=== PATIENT | female | born 1995 | race Caucasian/White ===

== ENCOUNTER 2022-09-08 13:46 | Outpatient (CLI) | payer BC, SELFPAY ==
--- NOTE | 2022-09-08 14:00 | CRLHL7_ITS ---
For Patients: As a result of the Cures Act, medical imaging exams and procedure reports are released immediately into your electronic medical record. You may view this report before your referring provider. If you have questions, please contact your health care provider. INDICATION: First trimester scan, establish dates. COMPARISON: None. TECHNIQUE: Real-time green-scale imaging of the pelvis was performed. FINDINGS: Sonographic imaging demonstrates a single living intrauterine gestation. The embryo demonstrates a regular cardiac rate measuring 161 beats per minute. The embryo`s crown-rump length measurement of 5.0 cm corresponds to a gestational age of 11 weeks 5 days with a sonographic due date of 03/25/2023. There is a normal-appearing yolk sac. There are no gross abnormalities noted within the embryo at this early state of development. The gestational sac has a normal appearance. There is no evidence of a perigestational hemorrhage. The amount of fluid within the sac appears appropriate for gestational age. The cervix is closed. The myometrium appears normal. The ovaries are of normal size. Corpus luteal cyst left ovary. There are no suspicious fluid collections noted in the cul-de-sac. IMPRESSION: Normal first trimester OB ultrasound exam. Gestational age calculated at 11 weeks 5 days with a sonographic due date of 03/25/2023. Dictated by Luigi Anton MD @ 09/08/2022 2:40:09 PM (Electronically Signed)
== END 2022-09-08 13:47 | disposition home or self-care (01) ==
LOC: US 13:49
PROVIDERS: Visit Provider Advanced Practice Midwife
DX: Z34.91 Encounter for supervision of normal pregnancy, unspecified, first trimester (principal); Z3A.11 11 weeks gestation of pregnancy
CPT/HCPCS: 76801; 86592; 86703; 86762; 86787; 86803; 86850; 86900; 86901; 87086; 87340

== ENCOUNTER 2022-09-08 14:18 | Outpatient (CLI) | payer BC, SELFPAY | END 2022-09-08 14:19 | disposition home or self-care (01) | PROVIDERS: Visit Provider Advanced Practice Midwife | DX: Z34.91 Encounter for supervision of normal pregnancy, unspecified, first trimester (principal); Z3A.11 11 weeks gestation of pregnancy | CPT/HCPCS: 86592; 86703; 86762; 86787; 86803; 86850; 86900; 86901; 87086; 87340 ==

== ENCOUNTER 2022-11-10 12:41 | Outpatient (CLI) | payer BC, SELFPAY ==
--- NOTE | 2022-11-10 13:00 | CRLHL7_ITS ---
For Patients: As a result of the Century Cures Act, medical imaging exams and procedure reports are released immediately into your electronic medical record. You may view this report before your referring provider. If you have questions, please contact your health care provider. INDICATION: Evaluate anatomy. COMPARISON: 09/08/2022 TECHNIQUE: Real time green scale imaging of the fetus was performed as well as color Doppler analysis of the umbilical vessels. FINDINGS: Sonographic imaging demonstrates a single living intrauterine gestation. Fetus demonstrates a regular cardiac rate of 149 beats per minute. Fetus has a variable position. The placenta lies posteriorly without evidence of placenta previa. The placental edge is located 8.4 cm from the internal cervical os. Amniotic fluid volume appears normal. Single deepest vertical pocket: 5.1 cm. The cervix is closed and measures 4.5 cm in length. The composite ultrasound gestational age is calculated at 20 weeks 3 days with an estimated sonographic due date of 03/27/2023. The estimated weight is 353 grams which lies at the 30th %. The following biometric measurements were obtained: Biparietal diameter: 4.8 cm/20 weeks 3 days 37th% Head circumference: 17.8 cm/20 weeks 2 days 22nd% Abdominal circumference: 15.5 cm/20 weeks 5 days 43rd% Femur length: 3.2 cm/20 weeks 1 day 22nd% The HC/AC ratio measures: 1.15 range (1.07-1.25) On anatomic survey, there is a normal appearance of the cerebral ventricles, cavum septi pellucidi, cisterna magna and cerebellum. The nose, lips, and facial profile appear normal. The cervical, thoracic and lumbar spine are well visualized and appear normal. There is a normal four-chamber heart view and the left and right ventricular outflow tracts appear normal. The diaphragm and stomach appear normal. The kidneys and bladder also appear normal. There is a normal three-vessel cord and cord insertion site. The four extremities appear normal. IMPRESSION: Normal OB ultrasound exam with concordance of clinical and sonographic dating. No intrinsic abnormalities noted on anatomic survey. Dictated by Luigi Anton MD @ 11/10/2022 1:33:53 PM (Electronically Signed)
== END 2022-11-10 12:42 | disposition home or self-care (01) ==
LOC: US 12:41
PROVIDERS: Visit Provider Advanced Practice Midwife
DX: Z34.92 Encounter for supervision of normal pregnancy, unspecified, second trimester (principal); Z3A.20 20 weeks gestation of pregnancy
CPT/HCPCS: 76805

== ENCOUNTER 2023-01-05 12:45 | Outpatient (CLI) | payer BC, SELFPAY | END 2023-01-05 12:46 | disposition home or self-care (01) | PROVIDERS: Visit Provider Advanced Practice Midwife | DX: Z34.93 Encounter for supervision of normal pregnancy, unspecified, third trimester (principal); O26.899 Other specified pregnancy related conditions, unspecified trimester; Z67.91 Unspecified blood type, Rh negative; Z3A.28 28 weeks gestation of pregnancy | CPT/HCPCS: 85461; 86592; 86850 ==

== ENCOUNTER 2023-03-02 15:35 | Outpatient (CLI) | payer BC, SELFPAY ==
[2023-03-03 14:42] LABS: Strep B DNA Probe Negative (Negative); Strep B Susceptibility Needed? No
== END 2023-03-02 15:36 | disposition home or self-care (01) ==
LOC: NFLDREF 15:35
PROVIDERS: Visit Provider Advanced Practice Midwife
DX: Z34.83 Encounter for supervision of other normal pregnancy, third trimester (principal); Z3A.36 36 weeks gestation of pregnancy
CPT/HCPCS: 87081; 87653

== ENCOUNTER 2023-03-09 15:41 | Outpatient (CLI) | payer BC, SELFPAY ==
--- NOTE | 2023-03-09 16:00 | CRLHL7_ITS ---
For Patients: As a result of the Century Cures Act, medical imaging exams and procedure reports are released immediately into your electronic medical record. You may view this report before your referring provider. If you have questions, please contact your health care provider. INDICATION: Measuring small for dates COMPARISON: 11/10/2022 TECHNIQUE: Real time green scale imaging of the fetus was performed. FINDINGS: Sonographic imaging demonstrates a single living intrauterine gestation. Fetus demonstrates a regular cardiac rate of 130 beats per minute. Fetus has a vertex position. The placenta lies posteriorly. Amniotic fluid volume appears normal and there is a single deepest vertical pocket: 5.7 cm. The estimated weight is 2774gm which lies at the 16th %. On the prior OB ultrasound exam dated 11/10/2022 the estimated weight was at the 30th%. BPD 11th percentile. HC 13th percentile. AC 27th percentile. FL less than 3rd percentile. The HC/AC ratio measures 1.00 range (0.93-1.09). IMPRESSION: Sonographic gestational age 35 weeks 5 days and sonographic due date 04/08/2023. Sonographic age 2 weeks behind the clinical age. Estimated weight 16th percentile. Abdominal circumference 27th percentile. Dictated by Luigi Anton MD @ 03/11/2023 3:58:41 PM (Electronically Signed)
== END 2023-03-09 15:42 | disposition home or self-care (01) ==
LOC: US 15:42
PROVIDERS: Visit Provider Advanced Practice Midwife
DX: O36.5930 Maternal care for other known or suspected poor fetal growth, third trimester, not applicable or unspecified (principal); Z3A.35 35 weeks gestation of pregnancy
CPT/HCPCS: 76816

== ENCOUNTER 2023-03-28 18:47 | Outpatient (CLI) | payer BC, SELFPAY ==
--- OUTSIDE RECORDS SUMMARY | 2023-03-28 18:49 | XMS_ITS | Clinical Summary ---
Author Name Unknown Organization [facility] Address [address] [place] [address] Care Team Providers Care Pre School Manager Name Role Phone Stefany Gant M.D. Primary Care Provider [phone] Source Comments Patient records contain information from all sites at [facility]. For routine questions regarding patient records, call [phone] during business hours, M-F 8:00 AM - 5:00 PM Central Time. Record requests for emergency care only can be directed to [phone] at any time.[facility] Allergies Active Allergy Reactions Criticality Noted Date Comments Azithromycin Rash 01/31/2019 Medications Medication Sig Dispensed Refills Start Date End Date Status pqxeahe-Ty-qaed-FA (VINATE ONE) 60 mg iron-1 mg per tablet Take 1 tablet by mouth daily. 0 Active Active Problems Problem Noted Date Diagnosed Date Dysmenorrhea 01/31/2019 Wart 01/31/2019 Estimated Date of Delivery Comme nts Yes 03/25/2023 Immunizations Name Administration Dates Next Due 9vHPV 07/18/2018,03/13/2018,01/04/2018 DTaP (Infanrix, [employer]) 10/01/2001,02/1999,02/23/1997,1996,1996 HepA Pediatric/Adolescent 09/23/2012,09/17/2009 HepA, Pediatric Unspecified 09/17/2009 HepB, Unspecified 05/19/1997,1996,10/21/18 97 Hib, Unspecified 03/16/1998, 7,1996,1996 Influenza Laiv (Nasal) (Discontinued) 02/23/2012 Influenza, Unspecified 12/17/2017 MCV4 (Menactra) 10/04/2015 MMR 10/01/2001,11/24/1997 Polio, Unspecified 10/01/2001, 7,1996,1996 Tdap 09/17/2009 ABDIAS 09/17/2009,09/18/1997 influenza vaccine quad (FLUZONE/FLUARIX) (6 months and older)(PF) 12/22/2018 Family History Medical History Relation Name Comments Hypertension Father Alcohol abuse Maternal Grandfather Diabetes Maternal Grandfather Esophageal cancer Maternal Grandfather Hearing loss Maternal Grandfather Breast cancer Maternal Grandmother Arthritis Mother Kaylee Lung disease Mother Kaylee Liver cancer Paternal Grandfather Stomach cancer Paternal Grandfather Relation Name Status Comments Father Maternal Grandfather Maternal Grandmother Mother Kaylee Paternal Grandfather Social History Tobacco Use Types Packs/Day Years Used Date Smoking Tobacco: Never Smokeless Tobacco: Never Tobacco Cessation:Counseling Given: Not Answered Alcohol Use Standard Drinks/Week Comments Yes 0 (1 standard drink = 0.6 oz pur e alcohol) Social Humiliation, Afraid, Rape, and Kick questionnair e Answer Date Recorded Within the last year, have y ou been afraid of your partner or ex-partner? No 10/20/2022 Within the last year, have y ou been humiliated or emotionally abused in other ways by your partner or ex-partner? No Within the last year, have y ou been kicked, hit, slapped, or otherwise physically hurt by your partner or ex-partner? No 10/20/2022 Within the last year, have y ou been raped or forced to have any kind of sexual activity by your partner or ex-partner? No 10/20/2022 Social Connection and Isolation Panel [NHANES] A nswer Date Recorded In a typical week, how many times do you talk on the phone with family, friends, or neighbors? Twice a week 07/28/2019 How often do you get together with friends or re latives? Once a week 07/28/2019 Attends Cheondoism Services Not on file 07/27 Active Member of Clubs or Organizations Not on f ile 07/28/2019 Attends Club or Organization Meetings Not on meredith e 07/28/2019 Marital Status Not on file 07/28/2019 AUDIT-C Answer Date Recorded Frequency of Alcohol Consumption Not on file 07/28/2019 Average Number of Drinks Not on file 020 Q3: How often do you have si x or more drinks on one occasion? Monthly 07/28/2019 Overall Financial Resource Strain (CARDIA) Answe r Date Recorded How hard is it for you to pa y for the very basics like food, housing, medical care, and heating? Not hard at all 10/20/2022 PHQ-2 Answer Date Recorded PHQ-2 Score 0 10/20/2022 [facility] Occupat ional Health - Occupational Stress Questionnaire Answer Date Recorded Do you feel stress - tense, restless, nervous, or anxious, or unable to sleep at night because your mind is troubled all the time - these days? Not at all 07/28/2019 Exercise Vital Sign Answer Date Recorde d On average, how many days pe r week do you engage in moderate to strenuous exercise (like a brisk walk)? 4 days 10/20/2022 On average, how many minutes do you engage in exercise at this level? 30 min 10/20/2022 Hunger Vital Sign Answer Date Recorded Within the past 12 months, y ou worried that your food would run out before you got the money to buy more. Never true 10/21/19 Within the past 12 months, t he food you bought just didn't last and you didn't have money to get more. Never true 10/20/2022 PRAPARE - Transportation Answer Date Re corded In the past 12 months, has l ack of transportation kept you from medical appointments or from getting medications? No 10/03 In the past 12 months, has l ack of transportation kept you from meetings, work, or from getting things needed for daily living? No 10/20/2022 Nutrition Answer Date Recorded Nutrition: EVOO Fat Source Unknown 10/20 On average, how many serving s of fruits and vegetables do you eat per day (serving size is equal to 1 cup or approximately the size of a tennis ball)? 3-5 10/20/2022 Dental Answer Date Recorded Dental: Regular Dentist Yes 10/21/19 Employment Answer Date Recorded Employment status Unemployed/not in th e paid workforce and NOT seeking employment 10/20/2022 Housing Stability Answer Date Recorded What is your living situation today? I have a [facility] place to live 10/20/2022 Education Answer Date Recorded What is the highest level of school you have completed or the highest degree you have received? 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 Oxygen Saturation - - Inhaled Oxygen Concentration - - Weight 60.9 kg (134 lb 4.2 oz) 10/20/2022 8:44 A M CDT Height 164.8 cm (5' 4.88) 10/20/2022 8:44 AM CD T Body Mass Index 22.42 10/20/2022 8:44 AM CDT Plan of Treatment Health Maintenance Due Date Last Done Comments Hepatitis C Screening 1996 COVID-19 Vaccine (#1) 02/21/1997 Cervical Cancer Screening 01/04/2021 01/04/2018 Influenza Vaccine (#1) 2022 9, 12/17/2017, 02/23/2012 Depression Screening (Annual PHQ-2) 03/05/2023 DTaP,Tdap,and Td Vaccines (8 - Td or Tdap) 06/15/2031 06/14/2021, 09/17/2009, 10/01/2001, Additional history exists Hepatitis B Vaccines Completed 05/19/1997, 1996, 1996 Varicella Vaccines Completed 09/17/2009, 09/18/1997 Chlamydia and Gonorrhea Screening Discontinued 01/04/2018 HPV Vaccines Completed 07/18/2018, 11/2018, 01/04/2018 Pneumococcal vaccine (0-64 years) Aged Out No longer eligible based on patient's age to complete this topic RSV vaccine - (32-36 weeks) or 60+ years (No Doses Required) Completed Medical Devices Implanted Type Area Primary School Principal Device Identifier Shelf Expiration Date Model / Serial / Lot Deflux 1ml Pre-Filled Syringe - [employer] [id number] Implanted:Qty: 3 on 10/14/2001 Urogenital Implant [facility] Description:Device Manufactu rer - [employer].. Device Status Text - [id number]. [facility] Data - [id number]. Care Teams Pre School Manager Relationship Specialty Start Date End Date Stefany Gant M.D. [address] [place] [address] PCP - General Family Medicine 08/29/21
--- OUTSIDE RECORDS SUMMARY | 2023-03-28 18:49 | XMS_ITS ---
Author Name Unknown Organization [facility] Address [address] [place] [address] Care Team Providers Care Rag Shredder Name Role Phone Unavailable Unavailable Unavailable Surgery Details Not on file Complications Check Surgery Details section. Procedure Estimated Blood Loss Check Surgery Details section. Procedure Findings Check Surgery Details section. Procedure Specimens Taken Check Surgery Details section.
--- OUTSIDE RECORDS SUMMARY | 2023-03-28 18:49 | XMS_ITS | Encounter Summary ---
Author Name Unknown Organization [facility] Address [address] [place] [id number] Care Team Providers Care Sales Representative Uniforms Name Role Phone Stefany Gant M.D. Primary Care Provider [phone]- [phone] Reason for Referral * Outpatient (Routine) - Authorized Specialty Diagnoses / Procedures Referred By Luis rivas Referred To Contact Family Medicine Irma Finnegan DMSc, Severiano, M.S. [address] [place] [phone] [facility] Referral ID Status Reason Start Date Expiration Date V isits Requested Visits Authorized [id number] Authorized 11/06/2022 11/05/2025 1 1 Scheduling Instructions Sunday Pap Smear Clinic or regular PCP clinic (M-F) Encounter Details Date Type Department Care Team (Late st Contact Info) Description 11/06/2022 Orders Only [facility] MNT Irma Finnegan DMSc, Ruslan., M.S. [address] [place] [phone] Social History Tobacco Use Types Packs/Day Years Used Date Smoking Tobacco: Never Smokeless Tobacco: Never Alcohol Use Standard Drinks/Week Comments Yes 0 [...] re latives? Once a week 07/28/2019 Attends Islam Services Not on file 07/27 Active Member [...] Answer Date Recorded PHQ-2 Score 0 10/20/2022 [facility] Health - Occupational Stress [...] Answer Date Recorded Employment status Unemployed/not in e paid workforce and NOT seeking employment 10/20/2022 Housing Stability Answer Date Recorded What is your living situation today? I have a [facility] place to live 10/20/2022 Education Answer Date [...] Orientation Straight 01/04/2018 2: 14 PM CDT documented as of this encounter Plan of Treatment Scheduled Referrals Name Type Priority Associated Diagnoses Orde r Schedule Family Medicine office visit (clinic) Outpatient Referral Routine Expected: 11/09/2022, Expires: 05/05/2023 documented as of this encounter Visit Diagnoses Not on filedocumented in this encounter Care Teams Sales Representative Uniforms Relationship Specialty Start Date End Date Stefany Gant M.D. [address] [place] [phone] PCP - General Family Medicine 08/29/21 documented as of this encounter
--- OUTSIDE RECORDS SUMMARY | 2023-03-28 18:49 | XMS_ITS | Encounter Summary ---
Author Name Unknown Organization [facility] Address [address] [place] [address] Care Team Providers Care Finishing Area Operator Name Role Phone Stefany Gant M.D. Primary Care Provider +1- [phone] Reason for Visit * Reason Comments Annual Exam * Outpatient (Routine) - Closed Specialty Diagnoses / Procedures Referred By Luis t Referred To Contact Family Medicine Stefany Gant M.D. [address] [address] [facility] Region Referral ID Status Reason Start Date Expiration Date Visits Re quested Visits Authorized [id number] Closed 07/19/2022 07/18/2025 1 1 Encounter Details Date Type Department Care Team (Late st Contact Info) Description 10/20/2022 9:00 AM CDT Office Visit Department of Family Medicine, [facility], in [place], [place] [address], [place] [address] Stefany Gant M.D. [address] [place] [phone] Annual Medicare Examination Return (Primary Dx); Need Vaccine Immunization Tetanus And Diphtheria Toxoids And Pertussis; Administrative Purpose Medical Exam; 17 Weeks Gestation (HCC) Social History Tobacco Use Types Packs/Day Years [...] re latives? Once a week 07/28/2019 Attends Latter Day Services Not on file 07/27 Active Member [...] Answer Date Recorded PHQ-2 Score 0 10/20/2022 [facility] [place] of Occupat ional Health - Occupational Stress [...] your living situation today? I have a [facility] place to live 10/20/2022 Education Answer [...] PM CDT documented as of this encounter Last Filed Vital Signs Vital Sign Reading Time Taken Comments Blood Pressure 101/69 10/20/2022 8:44 AM CDT Pulse 84 10/20/2022 8:44 AM CDT Temperature 36.2 ??C (97.2 ??F) 10/20/2022 8:44 AM CD T Respiratory Rate - - Oxygen Saturation - - Inhaled Oxygen Concentration - - Weight 60.9 kg (134 lb 4.2 oz) 10/20/2022 8:44 A M CDT Height 164.8 cm (5' 4.88) 10/20/2022 8:44 AM CD T Body Mass Index 22.42 10/20/2022 8:44 AM CDT documented in this encounter H&P Notes * Stefany Gant M.D. - 10/20/2022 9:00 AM CDT SUBJECTIVE CHIEF COMPLAINT/REASON FOR VISIT Annual health physical. HISTORY OF PRESENT ILLNESS Isabel Nash is a 27 y.o. female who presents to the clinic today for her annual health physical. This is her first visit with me. As per the patient today: She is here for general physical. She states she is and is due to deliver in March 2023. She states she received her prenatalcare elsewhere. FÁTIMA Mar 25, 2023. 17+5 weeks GA today. I reviewed the patient's chart for preventative medicine screens that are required. Based on the results, this is what I see: Breast Cancer Screening: Not required given age of 27. Paternal grandmother with breast Ca - age 60's. Cervical Cancer Screening: Due for Pap test. No records here. As per pt, had done December 2020. Deferred for now - ELISABETH for results from [facility] sent today. Pt unsure when was to repeat but believes it is to be in Dec 2023. Colon Cancer Screening: Not required given age of 27. Immunizations: Due for Tdap vaccine. We discussed this today. Given that she is she will get this at 28 weeks gestation. This was deferred today. Laboratory investigations - reviewed chart and pt is due for CBC, BMP, lipids, A1c. Declines as hadroutine labs done elsewhere and will consider in future here. No records here or on EMR. No smoking. Etoh when not socially; rare Etoh 2 oz wine rarely. No drug use. Recommending abstaining from Etoh when . 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 Has form to fill out. Given today and copy taken for chart. We reviewed routine healthcare maintenance and care gaps are due as per the EMR. The patient decided to go ahead with the ones indicated below and they are ordered as follows. There are no further concerns at this time. REVIEW OF SYSTEMS Please see HPI for pertinent positives, otherwise rest of ROS negative. HEALTHCARE MAINTENANCE Health Maintenance Topic Date Due Hepatitis C Screening Never done COVID-19 Vaccine (1) Never done DTaP,Tdap,and Td Vaccines (7 - Td or Tdap) 09/18/2019 Cervical Cancer Screening 01/04/2021 Depression Screening (Annual PHQ-2) Never done Influenza Vaccine (1) 12/03/2022 Hepatitis B Vaccines Completed Varicella Vaccines Completed HPV Vaccines Completed HIV Screening Completed Pneumococcal vaccine (0-64 years) Aged Out Chlamydia and Gonorrhea Screening Discontinued Immunization History Administered Date(s) Administered 9vHPV 01/04/2018, 03/13/2018, 07/18/2018 DTaP (Infanrix, Tripedia) 1996, 1996, 02/23/1997, 03/16/1998, 10/01/2001 HepA Pediatric/Adolescent 09/17/2009, 09/23/2012 HepA, Pediatric Unspecified 09/17/2009 HepB, Unspecified 1996, 1996, 05/19/1997 Hib, Unspecified 1996, 1996, 02/23/1997, 03/16/1998 Influenza Laiv (Nasal) (Discontinued) 02/23/2012 Influenza, Unspecified 12/17/2017 MCV4 (Menactra) 10/04/2015 MMR 11/24/1997, 10/01/2001 Polio, Unspecified 1996, 1996, 02/23/1997, 10/01/2001 Tdap 09/17/2009 ABDIAS 09/18/1997, 09/17/2009 influenza vaccine quad (FLUZONE/FLUARIX) (6 months and older)(PF) 12/22/2018 MEDICATIONS, ALLERGIES, MEDICAL/SOCIAL/FAMILY HISTORY REVIEWED. Current Outpatient Medications on File Prior to Visit Medication Sig Dispense Refill nfkgwzx-Gn-cybe-FA (VINATE ONE) 60 mg iron-1 mg per tablet Take 1 tablet by mouth daily. [DISCONTINUED] ibuprofen (ADVIL,MOTRIN) 200 mg tablet Take 1 tablet by mouth every 4 (four) hours. No current facility-administered medications on file prior to visit. OBJECTIVE VITAL SIGNS Vitals: 10/20/22 0844 BP: 101/69 Patient Position: Sitting Pulse: 84 Temp: 36.2 ??C Height: 164.8 cm Weight: 60.9 kg TempSrc: Temporal Body mass index is 22.42 kg/m??. PHYSICAL EXAMINATION Vitals reviewed. Constitutional General: She is not in acute distress. Appearance: Normal appearance. She is normal weight. She is not ill-appearing, toxic-appearing or diaphoretic. HENT Head: Normocephalic and atraumatic. Right Ear: Tympanic membrane, ear canal and external ear normal. There is no impacted cerumen. Left Ear: Tympanic membrane, ear canal and external ear normal. There is no impacted cerumen. Nose: No congestion or rhinorrhea. Mouth/Throat: Mouth: Mucous membranes are moist. Pharynx: Oropharynx is clear. No oropharyngeal exudate or posterior oropharyngeal erythema. Eyes General: No scleral icterus. Right eye: No discharge. Left eye: No discharge. Conjunctiva/sclera: Conjunctivae normal. Pupils: Pupils are equal, round, and reactive to light. Comments: Fundoscopy WNL, RR symmetrical. Neck Vascular: No carotid bruit. Cardiovascular Rate and Rhythm: Normal rate and regular rhythm. Heart sounds: Normal heart sounds. No murmur heard. No friction rub. No gallop. Pulmonary Effort: Pulmonary effort is normal. No respiratory distress. Breath sounds: Normal breath sounds. No stridor. No wheezing, rhonchi or rales. Abdominal General: Abdomen is flat. Bowel sounds are normal. There is no distension. Palpations: Abdomen is soft. There is no mass. Tenderness: There is no abdominal tenderness. There is no right CVA tenderness, left CVA tenderness, guarding or rebound. Hernia: No hernia is present. Comments: Gravid. Musculoskeletal General: No swelling, tenderness, deformity or signs of injury. Normal range of motion. Cervical back: Normal range of motion and neck supple. No rigidity or tenderness. Right lower leg: No edema. Left lower leg: No edema. Lymphadenopathy Cervical: No cervical adenopathy. Skin General: Skin is warm and dry. Capillary Refill: Capillary refill takes less than 2 seconds. Coloration: Skin is not jaundiced or pale. Findings: No bruising, erythema, lesion or rash. Neurological General: No focal deficit present. Mental Status: She is alert and oriented to person, place, and time. Mental status is at baseline. Gait: Gait normal. Psychiatric Mood and Affect: Mood normal. Behavior: Behavior normal. Thought Content: Thought content normal. ASSESSMENT / PLAN #1 Annual Medicare Examination Return #2 Need Vaccine Immunization Tetanus And Diphtheria Toxoids And Pertussis #3 Administrative Purpose Medical Exam #4 17 Weeks Gestation (HCC) Other orders - Family Medicine office visit (clinic) We discussed all the above testing, treatment and plans. The patient is aware to return to clinic or the emergency department if they develop any worrisome symptoms, or have any medical concerns. They can contact me via the portal or telephone if they would like as well. My contact information was given via the printed AVS today. They left in good condition and did not have any further questions prior to discharge. Stefany Gant M.D. documented in this encounter Plan of Treatment Not on file documented as of this encounter Visit Diagnoses Diagnosis Annual Medicare Examination Return- Primary Need Vaccine Immunization Tetanus And Diphtheria Toxoids And Pertussis Administrative Purpose Medical Exam 17 Weeks Gestation (HCC) documented in this encounter Care Teams Finishing Area Operator Relationship Specialty Start Date End Date Stefany Gant M.D. [address] [address] PCP - General Family Medicine 08/29/21 documented as of this encounter
--- OUTSIDE RECORDS SUMMARY | 2023-03-28 18:49 | XMS_ITS | Referral Summary ---
Author Name Unknown Organization [facility] Address [address] [place] [address] Care Team Providers Care Staff Editor Name Role Phone Stefany Gant M.D. Primary Care Provider +1- [phone] Source Comments Patient records contain information from all sites at [facility]. For routine questions regarding patient records, call [phone] during business hours, M-F 8:00 AM - 5:00 PM Central Time. Record requests for emergency care only can be directed to [phone] at any time.[facility] Allergies Active Allergy Reactions Criticality Noted Date Comments Azithromycin Rash 01/31/2019 Medications Medication Sig Dispensed Refills Start Date End Date Status fufvqse-Eh-auly-FA (VINATE ONE) 60 mg iron-1 mg per [...] quad (FLUZONE/FLUARIX) (6 months and older)(PF) 12/22/2018 Social History Tobacco Use Types Packs/Day Years [...] re latives? Once a week 07/28/2019 Attends Episcopal Services Not on file 07/27 Active Member [...] Answer Date Recorded PHQ-2 Score 0 10/20/2022 [facility] [place] of Occupat ional Health - Occupational Stress [...] your living situation today? I have a [facility] place to live 10/20/2022 Education Answer [...] T Respiratory Rate 16 02/21/2019 1:03 PM REUSE TECHNICIAN Oxygen Saturation - - Inhaled Oxygen Concentration - - Weight 60.9 kg (134 lb 4.2 oz) 10/20/2022 8:44 A M CDT Height 164.8 cm (5' 4.88) 10/20/2022 8:44 AM CD T Body Mass Index 22.42 10/20/2022 8:44 AM CDT Plan of Treatment Not on file Medical Devices Implanted Type Area Rigger Device Identifier Shelf Expiration Date Model / Serial / Lot Deflux 1ml Pre-Filled Syringe - Harkins [id number] Implanted:Qty: 3 on 10/14/2001 Urogenital Implant [employer] Description:Device Manufactu rer - [employer].. Device Status Text - [id number]. [facility] Data - [id number]. Care Teams Staff Editor Relationship Specialty Start Date End Date Stefany Gant M.D. [address] [place] [phone] PCP - General Family Medicine 08/29/21
--- OUTSIDE RECORDS SUMMARY | 2023-03-28 18:49 | XMS_ITS | Encounter Summary ---
Author Name Unknown Organization [facility] Address [address] [place] [address] Care Team Providers Care Cargoman Name Role Phone Stefany Gant M.D. Primary Care Provider +1- [phone] Reason for Referral * Outpatient (Routine) - Closed Specialty Diagnoses / Procedures Referred By Luis rivas Referred To Contact Family Medicine Stefany Gant M.D. [address], [place] [address] [facility] Referral ID Status Reason Start Date Expiration Date Visits Re quested Visits Authorized [id number] Closed 07/19/2022 07/18/2025 1 1 Encounter Details Date Type Department Care Team (Late st Contact Info) Description 07/19/2022 Orders Only [facility] SEMN PCP [facility] MNT Stefany Gant M.D. [address] [place] [address] Social History Tobacco Use Types Packs/Day Years Used Date Smoking Tobacco: Never Smokeless Tobacco: Never Alcohol Use Standard Drinks/Week Comments Yes 0 (1 standard drink = 0.6 oz pur e alcohol) Social Humiliation, Afraid, Rape, and Kick questionnair e Answer Date Recorded Fear of Current or Ex-Partner No Emotionally Abused No 01/31/2019 Physically Abused No 01/31/2019 Sexually Abused No 01/31/2019 Social Connection and Isolation Panel [NHANES] A nswer Date Recorded In a typical week, how many times do you talk on the phone with family, friends, or neighbors? Twice a week 07/28/2019 How often do you get together with friends or re latives? Once a week 07/28/2019 Attends Pentecostal Services Not on file 07/27 Active Member [...] food, housing, medical care, and heating? Not very hard 07/28/2019 [facility] [place] [facility] of Occupat ional Health - Occupational Stress [...] to strenuous exercise (like a brisk walk)? 5 days Minutes of Exercise per Session Not on file 07/28/2019 Hunger Vital Sign Answer Date Recorded Worried About Running Out of Food in the Last Ye ar Never true 01/31/2019 Ran Out of Food in the Last Year Never true 01/31/2019 PRAPARE - Transportation Answer Date Re corded Lack of Transportation (Medical) No 01/31/2019 Lack of Transportation (Non-Medical) No 01/31/2019 Nutrition Answer Date Recorded Nutrition: EVOO Fat Source No 07/27 On average, how many serving s of fruits and vegetables do you eat per day (serving size is equal to 1 cup or approximately the size of a tennis ball)? 2-3 07/28/2019 Dental Answer Date Recorded Dental: Regular Dentist Yes 03/12/19 Education Answer Date Recorded What is the highest level of school you have completed or the highest degree you have received? Some college, no degree 01/31/2019 Sex and Gender Information Value Date Recorded Sex Assigned at Female 01/04/2018 2:14 PM CDT Gender Identity Female 01/04/2018 2:14 PM CDT Sexual Orientation Straight 01/04/2018 2: 14 PM CDT documented as of this encounter Plan of Treatment Scheduled Referrals Name Type Priority Associated Diagnoses Orde r Schedule Family Medicine office visit (clinic) Outpatient Referral Routine Expected: 08/02/2022, Expires: 01/15/2023 documented as of this encounter Visit Diagnoses Not on filedocumented in this encounter Care Teams Cargoman Relationship Specialty Start Date End Date Stefany Gant M.D. [address], [place] [address] PCP - General Family Medicine 08/29/21 documented as of this encounter
[2023-03-28 18:54] VITALS: PULSE 71; O2SAT 100
[2023-03-28 18:55] VITALS: BP 119/78; PULSE 67; RESP 16; TEMP 36.4
--- NOTE | 2023-03-28 21:24 | PC.OBNST ---
NST Note NST Note Start: 03/28/23 19:11 Freq: ONCE Status: Active Protocol: Document 03/28/23 21:22 AVL (Rec: 03/28/23 21:24 AVL [id number]) NST Note 2 Para (# of births) 1 EDC 03/25/23 Gestational Age In Weeks & Days 40 Weeks & 3 Days Patient Presented with Complaint(s) of Contractions/cramping, Observation after an injury If Observation after an injury, describe cramping after a fall earlier this am Reactive Yes Appropriate for Gestational Age Yes PHIL Cardoso RN Date 03/28/23 Reactive Yes Appropriate for Gestational Age Yes PHIL Barrett RN Date 03/28/23 OB NST charge Yes Complete NST Note via Write Note Yes The provider's electronic signature indicates the NST is reactive/appropriate for gestational age. *Note to provider: If an addendum is required, open the patient's chart and click on the note under the Nurse/Allied Health tab.
== END 2023-03-28 21:15 | disposition home or self-care (01) ==
LOC: OB OUT 18:47 → OB 18:50
PROVIDERS: Visit Provider Advanced Practice Midwife
DX: O47.1 False labor at or after 37 completed weeks of gestation (principal); Z3A.40 40 weeks gestation of pregnancy
CPT/HCPCS: 59025; G0463

== ENCOUNTER 2023-04-02 07:17 | Inpatient (IN) | payer BC, SELFPAY ==
[2023-04-02] VITALS (14 sets, daily range): BP systolic 103–133; BP diastolic 62–81; PULSE 62–114; RESP 16–18; TEMP 36.4–36.6; O2SAT 92–99; BMI 26.4
--- OUTSIDE RECORDS SUMMARY | 2023-04-02 07:20 | XMS_ITS ---
Author Name Unknown Organization [facility] Address [address] [place] [address] Care Team Providers Care Rose Grower Name Role Phone Unavailable Unavailable Unavailable Surgery Details Not on file Complications Check Surgery Details section. Procedure Estimated Blood Loss Check Surgery Details section. Procedure Findings Check Surgery Details section. Procedure Specimens Taken Check Surgery Details section.
--- OUTSIDE RECORDS SUMMARY | 2023-04-02 07:20 | XMS_ITS | Referral Summary ---
Author Name Unknown Organization [facility] Address [address] [place] [address] Care Team Providers Care Waste Removalist Name Role Phone Stefany Gant M.D. Primary Care Provider +1- [phone] Source Comments Patient records contain information from all sites at [facility]. For routine questions regarding patient records, call [phone] during business hours, M-F 8:00 AM - 5:00 PM Central Time. Record requests for emergency care only can be directed to [phone] at any time.[facility] Allergies Active Allergy Reactions Criticality Noted Date Comments Azithromycin Rash 01/31/2019 Medications Medication Sig Dispensed Refills Start Date End Date Status dxovlbl-Fx-swio-FA (VINATE ONE) 60 mg iron-1 mg per [...] re latives? Once a week 07/28/2019 Attends Caodaism Services Not on file 07/27 Active Member [...] Answer Date Recorded PHQ-2 Score 0 10/20/2022 [facility] [place] of Occupat ional Health - Occupational Stress [...] your living situation today? I have a [facility] place to live 10/20/2022 Education Answer Date [...] T Respiratory Rate 16 02/21/2019 1:03 PM FUR COAT SEWER Oxygen Saturation - - Inhaled Oxygen Concentration - - Weight 60.9 kg (134 lb 4.2 oz) 10/20/2022 8:44 A M CDT Height 164.8 cm (5' 4.88) 10/20/2022 8:44 AM CD T Body Mass Index 22.42 10/20/2022 8:44 AM CDT Plan of Treatment Not on file Medical Devices Implanted Type Area General Engineer Device Identifier Shelf Expiration Date Model / Serial / Lot Deflux 1ml Pre-Filled Syringe - Harkins [id number] Implanted:Qty: 3 on 10/14/2001 Urogenital Implant [employer] Description:Device Manufactu rer - [employer]el.. Device Status Text - [id number]. [employer] Data - [id number]. Care Teams Waste Removalist Relationship Specialty Start Date End Date Stefany Gant M.D. [address] [place] [phone] PCP - General Family Medicine 08/29/21
--- OUTSIDE RECORDS SUMMARY | 2023-04-02 07:20 | XMS_ITS | Encounter Summary ---
Author Name Unknown Organization [facility] Address [address] [place] [address] Care Team Providers Care Turbine Inspector Name Role Phone Stefany Gant M.D. Primary Care Provider +1- [phone] Reason for Referral * Outpatient (Routine) - Closed Specialty Diagnoses / Procedures Referred By Luis rivas Referred To Contact Family Medicine Stefany Gant M.D. [address], [place] [address] [facility] Referral ID Status Reason Start Date Expiration Date Visits Re quested Visits Authorized [id number] Closed 07/19/2022 07/18/2025 1 1 Encounter Details Date Type Department Care Team (Late st Contact Info) Description 07/19/2022 Orders Only [facility] SEMN PCP [facility] MNT Stefany Gant M.D. [address] [place] [address] Social History Tobacco Use Types [...] re latives? Once a week 07/28/2019 Attends Zoroastrianism Services Not on file 07/27 Active Member [...] care, and heating? Not very hard 07/28/2019 [facility] of Occupat ional Health - Occupational [...] on filedocumented in this encounter Care Teams Turbine Inspector Relationship Specialty Start Date End Date Stefany Gant M.D. [address] [address] PCP - General Family Medicine 08/29/21 documented as of this encounter
--- OUTSIDE RECORDS SUMMARY | 2023-04-02 07:20 | XMS_ITS | Encounter Summary ---
Author Name Unknown Organization [facility] Address [address] [place] [address] Care Team Providers Care Lumber Handler Name Role Phone Stefany Gant M.D. Primary Care Provider +1- [phone] Reason for Visit * Reason Comments Annual Exam * Outpatient (Routine) - Closed Specialty Diagnoses / Procedures Referred By Luis t Referred To Contact Family Medicine Stefany Gant M.D. [address], [place] [address] [facility] Region Referral ID Status Reason Start Date Expiration Date Visits Re quested Visits Authorized [id number] Closed 07/19/2022 07/18/2025 1 1 Encounter Details Date Type Department Care Team (Late st Contact Info) Description 10/20/2022 9:00 AM CDT Office Visit Department of Family Medicine, [facility], in [place], [place] [address], [place] [address] Stefany Gant M.D. [address] [place] [phone] Annual Medicare Examination Return (Primary Dx); [...] re latives? Once a week 07/28/2019 Attends Taoism Services Not on file 07/27 Active Member [...] Answer Date Recorded PHQ-2 Score 0 10/20/2022 [facility] [place] of Occupat ional Health - Occupational Stress [...] your living situation today? I have a [facility] place to live 10/20/2022 Education Answer [...] for now - ELISABETH for results from [facility] sent today. Pt unsure when was to [...] Prior to Visit Medication Sig Dispense Refill gvqqqhx-Ka-skro-FA (VINATE ONE) 60 mg iron-1 mg per [...] (HCC) documented in this encounter Care Teams Lumber Handler Relationship Specialty Start Date End Date Stefany Gant M.D. [address], [place] [address] PCP - General Family Medicine 08/29/21 documented as of this encounter
--- OUTSIDE RECORDS SUMMARY | 2023-04-02 07:20 | XMS_ITS | Encounter Summary ---
Author Name Unknown Organization [facility] Address [address] [place] [address] Care Team Providers Care Program Advisor Name Role Phone Stefany Gant M.D. Primary Care Provider +1- [phone] Reason for Referral * Outpatient (Routine) - Authorized Specialty Diagnoses / Procedures Referred By Luis rivas Referred To Contact Family Medicine Irma Finnegan DMSc, [place], M.S. [address] [place] [phone] [facility] Referral ID Status Reason Start Date Expiration Date V isits Requested Visits Authorized [id number] Authorized 11/06/2022 11/05/2025 1 1 Scheduling Instructions Sunday Pap Smear Clinic or regular PCP clinic (M-F) Encounter Details Date Type Department Care Team (Late st Contact Info) Description 11/06/2022 [facility] Irma Finnegan DMSc, [place]., M.S. [address] [place] [phone] Social History Tobacco Use Types Packs/Day Years [...] re latives? Once a week 07/28/2019 Attends Amish Services Not on file 07/27 Active Member [...] Answer Date Recorded PHQ-2 Score 0 10/20/2022 [facility] of Occupat ional Health - Occupational [...] your living situation today? I have a [facility] place to live 10/20/2022 Education Answer [...] on filedocumented in this encounter Care Teams Program Advisor Relationship Specialty Start Date End Date Stefany Gant M.D. [address] [place] [address] PCP - General Family Medicine 08/29/21 documented as of this encounter
--- OUTSIDE RECORDS SUMMARY | 2023-04-02 07:20 | XMS_ITS | Clinical Summary ---
Author Name Unknown Organization [facility] Address [address] [place] [address] Care Team Providers Care Orthopedic Brace Maker Name Role Phone Stefany Gant M.D. Primary Care Provider [phone] Source Comments Patient records contain information from all sites at [facility]. For routine questions regarding patient records, call [phone] during business hours, M-F 8:00 AM - 5:00 PM Central Time. Record requests for emergency care only can be directed to [phone] at any time.[facility] Allergies Active Allergy Reactions Criticality Noted Date Comments Azithromycin Rash 01/31/2019 Medications Medication Sig Dispensed Refills Start Date End Date Status [id number] (VINATE ONE) 60 mg iron-1 mg per [...] Answer Date Recorded PHQ-2 Score 0 10/20/2022 [facility] Occupat ional [facility] - Occupational Stress [...] T Respiratory Rate 16 02/21/2019 1:03 PM AIR TESTER Oxygen Saturation - - Inhaled Oxygen Concentration [...] Required) Completed Medical Devices Implanted Type Area Medical Auditor Device Identifier Shelf Expiration Date Model / Serial / Lot Deflux 1ml Pre-Filled Syringe - [employer] [id number] Implanted:Qty: 3 on 10/14/2001 Urogenital Implant [facility] Description:Device Manufactu rer - Optyn Nabeel.. Device Status Text - [id number]. [facility] Data - [id number]. Care Teams Orthopedic Brace Maker Relationship Specialty Start Date End Date Stefany Gant M.D. [address] [place] [address] PCP - General Family Medicine 08/29/21
--- NOTE | 2023-04-02 08:04 | P.LDBA_ITS ---
Subjective History of Present Illness Date Seen: 04/02/23 Specific Issues/Plans : Lambert H&P done by SANTOSH Marks on 03/09/2022 1. A neg Blood Type Recommend Rhogam at 28 weeks: received 01/05 Recommend Rhogam pp 5P's: complete next visit: Completed. COVID: declined Flu: declined TDAP: declined RSV: Given info 02/02/2023 32wk Mental Health: 02/02/2023 34wk Hgb: 03/02/2023 12.3 Comments: Isabel is being admitted to Labor and Delivery for an IOL for dates. She is a 27 year old G 2 P 1 at?41.1 weeks gestation. Her full history and physical was dictated by Chuck Arce on 03/09/23. Please see this for details. Her Lambert is with her for support. She is planning non pharmacologic methods and water for pain management. OB - Problem Based A/P Additional Plan (1) Post-dates : Status: Acute (2) Encounter for induction of labor: Status: Acute (3) Supervision of other normal : Status: Acute (4) Rh negative status during : Status: Acute Plan Assessment:?? at 41.1 weeks gestation?? GBS neg IOL for dates uncomplicated ? Plan:?? * Admit to L & D? * Options reviewed for IOL. Decision made to proceed with cytotec. Aware of risks and benefits. * IV access: Per protocol only if needed * Monitoring: continuous per protocol for IOL methods * Candidate for analgesia of choice.? Planning nonpharmacologic methods for pain management * Desires waterbirth.? Consent signed and Hep C negative * Anticipate progress to NVD Delivery/Labor/Induction Plan Plan: induction Induction method: per misoprostol protocol OB Exam Physical Exam Narrative: VSS, afebrile? General Appearance:? Calm, cooperative.? No acute distress.? Normal affect.? Psychiatric Exam: Alert and oriented, appropriate affect? HEENT: normocephalic, neck supple, full ROM? Respiratory:? Symmetrical chest wall movement.? Normal respiratory effort.? Clear to auscultation? Cardiac:? regular rate and rhythm? Abdomen: Gravid, non tender? Extremities:? normal and trace edema? Skin: warm, dry.??? Ctx:? mild, irregular sarah mata FHTs:? Baseline: 135.? Variability: moderate.?? Accels: present.??? Decels:? none.? SVE: FT/50/-3, posterior? Membranes: intact? Detailed Labor and Delivery Exam Patient Gravid: Yes
[2023-04-02] MEDS: miSOPROStoL 25 MCG/0.25 TABLET VAGINAL ×2 (08:16→12:20)
[2023-04-02 09:25] LABS: Basophils Absolute Auto 0.01 K/uL (0.00-0.30); Basophils Percent Auto 0.1 % (0.0-3.0); Eosinophils Absolute Auto 0.02 K/uL (0.00-0.50); Eosinophils Percent Auto 0.2 % (0.0-7.0); Hematocrit 41.3 % (33.0-51.0); Immature Granulocytes Abs Auto 0.01 K/uL (0.00-0.30); Immature Granulocytes Pct Auto 0.1 %; Lymphocytes Percent Auto 18.3 % (20-44); Mean Corpuscular HGB Conc 34 gm/dL (32-36); Mean Corpuscular Hemoglobin 32 pg (26-34); Mean Corpuscular Volume 94 fL (80-100); Monocytes Percent Auto 4.4 % (0.0-11.0); Neutrophils Percent Auto 76.9 % (42.0-72.0); Platelet Count* 204 K/uL (140-440); RDW Coefficient of Variation % 11.7 % (11.5-15.5); Red Blood Count 4.38 m/uL (4.00-5.20); White Blood Count* 8.35 K/uL (4.50-11.00)
[2023-04-02 09:30] LABS: Slide Review Reflex No
[2023-04-02] MEDS: LACTATED RINGERS 1000 ML 1,000 ML IV (13:38)
[2023-04-02] MEDS: OXYTOCIN 30 unit/500 ML in NS 30 UNIT/500 ML BAG 300 UNIT IVPB (16:04)
--- NOTE | 2023-04-02 16:22 | W.PM.OBVAGDE ---
OB Procedure Vag Delivery Mother Details Mother Details: The patient is a 27 year-old, 2, now Para 2, admitted on 04/02/23 at 41.1 weeks gestation. : 2 Para: 2 Weeks Gestation: 41.1 Admission Date: 04/02/23 Additional Details Amniotic Membrane Status: SROM Amniotic Membrane Rupture Date: 04/02/23 Amniotic Membrane Rupture Time: 14:45 Amniotic Membrane Fluid Description: Clear (Noted at SROM and during pushing) and Meconium Stained (As head was , mod mec noted in fluid. Terminal mec also noted after delivery. ) Analgesia/Anesthesia Type: None Waterbirth: No Pitcoin: No (PP only for AMTSL) Intrapartal Events: Labor Induction Induction Method: per misoprostol protocol Labor Onset: 14:45 Complete: 15:28 (assumed with pushing) Pushin:28 Heart: Throughout labor, Isabel had bouts of repetitive late decelerations. Min to mod variability. Rare accels. Improved at times with position changes. IV placed and fluid bolus given. Strip reviewed by Dr. Zhao. Ok given to continue to labor, will continue to monitor closely for change and FHR. Delivery Details Delivery Date: 04/02/23 Delivery Time: 15:54 Route of delivery: Gender: Female Infant Viability: Alive; Heart Rate Present Position at Delivery: OA Delivery Details: Called to pt room around 1430. Isabel requesting SVE. 3/-2, posterior. Shortly after Isabel noted SROM, and ctx noted to increase in intensity. Called to pt room again at 1521. called out to say she was feeling increased pressure. When I arrived, Isabel was on hands and knees, rocking with ctx. Breathing through them in good control. Shortly after, spontaneous baring down noted. She did request to get in the tub, and it was filled. By that time she was starting to crown, and declined to move. She continued to push on hands and knees on a mat on the floor. FHT difficult to monitor r/t position, but able to spot check them, and WNL at those times, 120-130s. Assumed complete at 1528 w/ spontaneous pushing. ? Spontaneous vaginal?delivery at 1554 of?a viable? female .??Delivered in vertex OA position.??Mod mec noted with delivery of head, previously had been clear during pushing. Shoulders?delivered easily.? Spontaneous cry noted.??Infant through Isabel's legs placed on the mat with the help of an RN. Isabel then assisted to hold the baby. Terminal mec also noted. When ready, moved to the bed.??Cord?was clamped and cut after a 5+ minute delay, once it had stopped pulsing.? Shoulder dystocia: no? Nuchal cord: no? Meconium stained?fluid: yes? Water : no? ? ? 8 at 1 minute and 9 at 5 minutes.? ? Placenta?delivered spontaneously and?complete?at 1603 with a?3 vessel?cord.?? Bleeding controlled with fundal massage and?pitocin?for AMTSL.? ? Mother and infant were stable after?delivery.? ? Lacerations:? No lacerations ? Bleeding?post?delivery?was: minimal. ?The fundas was firm to palpation.? Blood loss: 25?mL.? Blood loss measurement type: QBL? ? ? Sponge,?lap?and needles counts are correct.? Mother and were stable after?delivery.? 1 Minute Interval Total Score: 8 5 Minute Interval Total Score: 9 Additional Details Shoulder Dystocia: No Placenta Delivery Time: 16:03 Placental Delivery Description: Spontaneous Procedure Done: Global Blood Loss: 25 Laceration: None Blood Loss Measurement Type: QBL Bakri Used: No Sponge/Need Count Correct: Yes Cord Vessel Description: 3 Vessels Event Summary Status: Mother and infant were stable after delivery. Disposition: floor
[2023-04-02] MEDS: ACETAMINOPHEN 500 MG TABLET 1000 MG PO (19:56)
[2023-04-02] MEDS: DOCUSATE SODIUM 100 MG CAPSULE PO (19:57)
[2023-04-02] MEDS: IBUPROFEN 600 MG TABLET PO (23:15)
[2023-04-03] MEDS: ACETAMINOPHEN 500 MG TABLET 1000 MG PO ×3 (02:09→14:10)
[2023-04-03 05:09] VITALS: BP 114/65; PULSE 64; RESP 18; TEMP 36.3; O2SAT 98
[2023-04-03] MEDS: IBUPROFEN 600 MG TABLET PO ×2 (05:11→11:05)
[2023-04-03] MEDS: DOCUSATE SODIUM 100 MG CAPSULE PO (08:22)
[2023-04-03 09:39] VITALS: BP 106/68; PULSE 78; RESP 16; O2SAT 97
[2023-04-03 12:36] VITALS: BP 106/70; PULSE 67; RESP 16; TEMP 36.9; O2SAT 97
--- NOTE | 2023-04-03 14:50 | PM.OBDSVD1 ---
DS: Providers Provider Date Seen: 04/03/23 Date of admission: 04/02/23 07:17 Primary care physician: Not a Local Provider Admitting Clinician: Naomi Douglas CNM Attending Physician on discharge: Naomi Douglas CNM Date of Discharge: 04/03/23 DS: Diagnosis Discharge Diagnosis (1) care following vaginal delivery: Status: Acute (2) due to : Status: Resolved Problem details: going well, no concerns Exam Narrative: Exam Narrative: GENERAL APPEARANCE:? normal affect, alert, no distress? MOOD:? appropriate? CHEST:? clear to auscultation and percussion? HEART:? regular rate and rhythm? ABDOMEN:? soft, non-tender the uterine fundus is 2 cm Below Umbilicus, Midline and is appropriate for the stage of recovery. ? PERINEUM:? mild edema of the perineum, there is a intact perineum that is healing well.? EXTREMITIES:? normal and no edema? Patient has no complaints? No active bleeding?? Doing well? She is requesting discharge home.? Const: Vital Signs, click to edit/add: Vital Signs - 24 hr 04/02/23 15:25 04/02/23 15:53 04/02/23 15:53 Temperature Pulse Rate 100 Pulse Rate [Pulse Oximeter] Respiratory Rate Blood Pressure 122/81 Blood Pressure [Le ft Arm] Pulse Oximetry 99 96 92 Oxygen Delivery Me thod 04/02/23 16:08 04/02/23 16:22 04/02/23 16:35 Temperature Pulse Rate 72 78 64 Pulse Rate [Pulse Oximeter] Respiratory Rate Blood Pressure 128/72 130/68 133/69 Blood Pressure [Le ft Arm] Pulse Oximetry Oxygen Delivery Mt thod 04/02/23 16:50 04/02/23 17:05 04/02/23 17:20 Temperature Pulse Rate 63 67 62 Pulse Rate [Pulse Oximeter] Respiratory Rate Blood Pressure 117/64 109/62 109/65 Blood Pressure [Le ft Arm] Pulse Oximetry Oxygen Delivery Mt thod 04/02/23 17:35 04/02/23 17:50 04/02/23 19:57 Temperature Pulse Rate 63 68 Pulse Rate [Pulse Oximeter] 85 Respiratory Rate 18 Blood Pressure 116/73 110/63 Blood Pressure [Le ft Arm] 103/66 Pulse Oximetry 98 [facility] 04/02/23 23:17 04/03/23 05:09 04/03/23 09:39 Temperature 97.5 F L 97.4 F L Pulse Rate Pulse Rate [Pulse Oximeter] 99 64 78 Respiratory Rate 18 18 16 Blood Pressure Blood Pressure [Le ft Arm] 107/72 114/65 106/68 Pulse Oximetry 98 98 97 Oxygen Delivery Me thod Room Air Room Air Room Air 04/03/23 12:36 Temperature 98.4 F Pulse Rate Pulse Rate [Pulse Oximeter] 67 Respiratory Rate 16 Blood Pressure Blood Pressure [Le ft Arm] 106/70 Pulse Oximetry 97 Oxygen Delivery Me thod Room Air Documenting provider has reviewed patient's vital signs: yes OB - DS: Summary Hospital Course Hospital Course: The patient is a 27 year old G 2 P 2 at 41.1 weeks gestation that was admitted to the Center on 04/02/23 for active labor at term. She had an uncomplicated vaginal delivery. She delivered a viable female infant. She is breast feeding. She feels that it is going well and she is working on a deeper latch for comfort. the patient has done well. She is planning [facility] for post contraception management. Peripartum Data delivery method: Vaginal Laceration description: None Episiotomy description: None complications: none Hope Gender: Female Infant Discharge Plan: Home Status at Discharge Functional status at discharge: independent ambulation Overall status at discharge: patient is progressing back to baseline Time Spent with Patient Time attestation: Total time spent providing and/or coordinating discharge services: Discharge Plan Discharge Disposition: Home, Self-Care Date of Admission: 04/02/23 07:17 Attending Provider on Discharge: Almaz Manzano Primary Care Provider: Provider,Not a Local Condition: Stable Anticipated Discharge Date/Time: 04/03/23 17:00 Discharge Medications: New ibuprofen 600 mg Tablet 600 mg PO Q6H PRNQty: 60 0RF Continued prenat.vits,stevie,xrr-hjog-liohl Tablet 1 tab PO QDAY Discontinued ferrous gluconate [Ferate] 240 mg (27 mg iron) tablet 240 mg PO QDAY Discharge Orders: Discharge Order (Routine); Ordered 04/03/23 Ordered By: Almaz Manzano Patient Education: OB Vaginal/Breast Feeding Additional Instructions: Discharge instructions were reviewed with the patient including signs and symptoms of infection and home going medications.? Lifting Restrictions: 20 pounds for 6? weeks? ?? Do not drive while taking narcotic pain meds.? Off Work or School for 6 weeks.? ?? Symptoms to report to doctor:? -Bleeding that saturates more than one pad per hour? -Passing clots larger than the size of a golf ball? -Pain not relieved by prescribed medication? -Fever above 100.4 degrees Fahrenheit? -A foul vaginal odor? -Difficulty in emotions, mood and functions? -Thoughts of hurting yourself and/or ? -Painful, reddened area in your breast? -Any drainage, redness or tenderness in your IV/epidural site? -Severe headache that doesn't improve after taking medications? -Changes in vision, including temporary loss of vision, blurred vision, and/or light sensitivity? -Upper abdominal pain (usually under ribs on the right side)? -Decrease in urination or painful, frequent urinating? -Chest pain? -Shortness of breath? -Tenderness or pain with redness and/swelling in the calf(s) of your leg? ?? Follow Up in clinic in 2 and 6 weeks.? ?? consultation services are available to all mothers and babies for the first year after delivery.? To make an appointment, please call [phone].? Activity Level: Activity as Tolerated Discharge Diet: Regular Follow Up Appointments: Provider,Not a Local [Primary Care Provider] - [facility] [Provider Group] Forms: [employer] Info Instructions
[2023-04-03 15:56] VITALS: BP 109/71; PULSE 78; RESP 16; TEMP 36.9; O2SAT 96
== END 2023-04-03 18:40 | disposition home or self-care (01) | DRG 560 ==
PROVIDERS: Admitting Provider Advanced Practice Midwife; Visit Provider Advanced Practice Midwife
DX: O48.0 Post-term pregnancy (principal); O26.893 Other specified pregnancy related conditions, third trimester; Z67.11 Type A blood, Rh negative; Z3A.41 41 weeks gestation of pregnancy; Z37.0 Single live birth
CPT/HCPCS: 36415; 59200; 85025; 85461; 86850; 86900; 86901; A9270; J2791; J7120

== ENCOUNTER 2024-03-20 09:09 | Outpatient (CLI) | payer BC, SELFPAY ==
--- NOTE | 2024-03-20 09:15 | CRLHL7_ITS ---
For Patients: As a result of the Century Cures Act, medical imaging exams and procedure reports are released immediately into your electronic medical record. You may view this report before your referring provider. If you have questions, please contact your health care provider. INDICATION: Recent miscarriage (03/01/2024). Evaluate for RPOC. COMPARISON: none TECHNIQUE: 2D green scale and color Doppler images were acquired of the pelvis using a transabdominal and transvaginal approach. FINDINGS: Sonographic images demonstrate a normal size and smooth outer contour of the uterus. Uterus measures 9.7 cm in length by 4.5 cm in AP diameter by 5.3 cm in transverse dimension. The myometrium has a normal uniform echotexture. The endometrial lining appears thickened and heterogeneous measures 17 mm in composite thickness. No associated vascularity. No fluid. The right ovary measures 3.6 x 2.4 x 3.1 cm in size and the left ovary measures 3.1 x 2.1 x 1.8 cm. The ovaries demonstrate normal arterial and venous blood flow on color Doppler analysis. Trace pelvic free fluid. Corpus luteal cyst right ovary measures 2.6 x 2.0 x 2.3 cm. IMPRESSION: Thickened and heterogeneous endometrium measuring 17 millimeters without vascularity. No evidence of retained products. Dictated by Luigi Anton MD @ 03/20/2024 10:20:17 AM (Electronically Signed)
== END 2024-03-20 09:10 | disposition home or self-care (01) ==
LOC: US 09:10
PROVIDERS: Visit Provider Advanced Practice Midwife
DX: O03.9 Complete or unspecified spontaneous abortion without complication (principal); R93.89 Abnormal findings on diagnostic imaging of other specified body structures
CPT/HCPCS: 76830

== ENCOUNTER 2024-08-20 09:12 | Outpatient (CLI) | payer BC, SELFPAY ==
--- NOTE | 2024-08-20 09:15 | CRLHL7_ITS ---
For Patients: As a result of the Cures Act, medical imaging exams and procedure reports are released immediately into your electronic medical record. You may view this report before your referring provider. If you have questions, please contact your health care provider. OB ULTRASOUND INDICATION: Dating and viability. TECHNIQUE: Real time grayscale imaging of the fetus was performed. Transabdominal. LMP: 05/27/2024. FÁTIMA by LMP: 03/03/2025. GA: 12 w, 1 d. Previous US: No. CRL: 5.6 cm. 12 w 1 d. FÁTIMA: 03/03/2025. FHR: 159 BPM. Gestational sac: 5.9 cm. Appears within normal limits. Yolk sac: 3.9 mm. Appears within normal limits. Right ovary: N/V. Left ovary: 2.5 x 2.0 x 2.1 cm. CL. IMPRESSION: 1. Single living intrauterine measuring 12 weeks 1 day and sonographic due date 03/03/2025. 2. Right subchorionic hemorrhage measures 14 x 3 x 3 mm. Luigi Anton M.D. Diagnostic Radiologist [email or web address] JESS/radu lovelace/Dictated by: Luigi Anton MD @ 08/20/2024 10:56:00 AM (Electronically Signed)
== END 2024-08-20 09:13 | disposition home or self-care (01) ==
LOC: US 09:12
PROVIDERS: Visit Provider Midwife
DX: Z34.91 Encounter for supervision of normal pregnancy, unspecified, first trimester (principal); O20.9 Hemorrhage in early pregnancy, unspecified; Z3A.12 12 weeks gestation of pregnancy
CPT/HCPCS: 76801; 83021; 86592; 86703; 86704; 86706; 86762; 86787; 86803; 86850; 87086; 87340

== ENCOUNTER 2024-09-16 15:38 | Outpatient (CLI) | payer BC, SELFPAY | END 2024-09-16 15:39 | disposition home or self-care (01) | LOC: NFLDREF 09-18 01:42 | PROVIDERS: Visit Provider Advanced Practice Midwife | DX: Z34.82 Encounter for supervision of other normal pregnancy, second trimester (principal) | CPT/HCPCS: 87491; 87591 ==

== ENCOUNTER 2024-10-14 09:05 | Outpatient (CLI) | payer BC, SELFPAY ==
--- NOTE | 2024-10-14 09:15 | CRLHL7_ITS ---
For Patients: As a result of the Century Cures Act, medical imaging exams and procedure reports are released immediately into your electronic medical record. You may view this report before your referring provider. If you have questions, please contact your health care provider. OB ULTRASOUND GREATER THAN 14 WEEKS, 10/14/2024 CLINICAL HISTORY: screen. TECHNIQUE: Ultrasound OB pelvis transabdominal. Real-time green-scale imaging of the pelvis was performed.? FINDINGS: FÁTIMA by US: 03/03/2025. GA: 20 weeks 0 days. Position: Vertex. Cervix: Visualized. Technique: Transabdominal. Length of closed cervix: 4.1 cm. Placenta/Cord: Placenta Position: Anterior. Technique: TA. Placenta tip to internal OS: 7.5 cm. Umbilical Cord: 3 vessel cord. Placental Insertion: Central. Amniotic Fluid: 5.6 cm SDP. Observed Structures: Calvarium/Spine: Cerebellum: 2.2 cm, 21 weeks 6 days Cisterna Magna: 5.3 mm Nuchal Fold: 5.2 mm Lateral Ventricles: 7.2 mm CSP Midline Falx Choroid Plexus Spine Abdomen: Stomach Abd Cord Insert Urinary Bladder Kidneys Diaphragm Face: Nose/Lips Orbital View Profile Limbs: Upper Extremities Lower Extremities Hands Feet Vascular: 4 Ch Heart LVOT RVOT 3VV 3VTV BIOMETRY: BDP: 4.8 cm, 20 weeks 4 days. 75% HC: 17.7 cm, 20 weeks 1 day. 50% AC: 15.5 cm, 20 weeks 5 days. 67% FL: 3.1 cm, 19 weeks 5 days. 33% FL/AC: 20.28% HC/AC Ratio: 1.14. Heart Rate: 152 bpm. Age by this US: 20 weeks 4 days. FÁTIMA by this US: 02/27/2025. EFW: 341 grams, 0 lb 12 oz. Percentile by FÁTIMA: 60% IMPRESSION: 1. Concordance of clinical and sonographic dating. 2. Normal anatomic survey. 3. Incidental placental owen noted measuring 3.9 x 1.6 x 4.6 cm which is not associated with the cord insertion. Luigi Anton M.D. Diagnostic Radiologist [email or web address] Transcribed: 11:24 am DW/Dictated by: Luigi Anton MD @ 10/14/2024 10:54:00 AM (Electronically Signed)
== END 2024-10-14 09:06 | disposition home or self-care (01) ==
LOC: US 09:05
PROVIDERS: Visit Provider Midwife
DX: Z34.82 Encounter for supervision of other normal pregnancy, second trimester (principal); Z3A.20 20 weeks gestation of pregnancy
CPT/HCPCS: 76805

== ENCOUNTER 2024-12-09 13:56 | Outpatient (CLI) | payer BC, SELFPAY | END 2024-12-09 13:57 | disposition home or self-care (01) | LOC: NFLDREF 13:57 | PROVIDERS: Visit Provider Advanced Practice Midwife | DX: O26.899 Other specified pregnancy related conditions, unspecified trimester (principal); Z67.91 Unspecified blood type, Rh negative | CPT/HCPCS: 86592; 86850; J2791 ==

== ENCOUNTER 2025-02-03 13:58 | Outpatient (CLI) | payer BC, SELFPAY ==
[2025-02-04 21:06] LABS: Strep B DNA Probe Negative (Negative)
[2025-02-04 21:17] LABS: Strep B Susceptibility Needed? No
== END 2025-02-03 13:59 | disposition home or self-care (01) ==
LOC: NFLDREF 13:58
PROVIDERS: Visit Provider Advanced Practice Midwife
DX: Z34.93 Encounter for supervision of normal pregnancy, unspecified, third trimester (principal)
CPT/HCPCS: 87081; 87653

== ENCOUNTER 2025-03-03 07:31 | Inpatient (IN) | payer BC, SELFPAY ==
[2025-03-03] VITALS (16 sets, daily range): BP systolic 105–129; BP diastolic 63–82; PULSE 63–96; RESP 12–16; TEMP 36.7–37; O2SAT 96–98; BMI 28.0
--- NOTE | 2025-03-03 08:20 | P.LDBA_ITS ---
Subjective History of Present Illness Narrative: Isabel is a 29 yo at 40 0/7 weeks gestation being admitted to Labor and Delivery for elective induction of labor. Her full history and physical was dictated by SANTOSH Otero on 02/10/2025. Please see this for details. She is supported by her partner, Lambert. She reports she has had some cramping over the last few weeks but no regular contractions. She denies any leaking of fluid or bleeding and endorses active movement. Specific Issues/Plans G4 P 2011 Partner: Lambert?2 Daughters: Maeve and Breanna. It is a boy! H&P completed by Nichole FROST on 02/10/2025? ? #Rh negative, knows Kyaw Blood type is + Declined genetic screen Recommend rhogam at 28w- given prn # Placenta owen 3.9x 1.6x 4.6 cm No follow-up needed #Failed 1 hr GTT-181 pt declines 3 hr wants to do 2 weeks of testing instead 2 week testin.8% abnormal, does not meet criteria for GDM (20% cutoff) Offered nutrition consult: declines 01/06 Imaging:? 1st trimester: 08/20/24- [facility] consistent with dating Anatomy scan: 10/14/2024 unremarkable anatomy, EFW 60%ile ?? Others: []? COVID:?declined 02/03/2025 Flu:?declined 02/03/2025? Tdap:?declined RSV: declined 02/03/2025 32wk Mental Health:? 34wk hgb:??? 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 Pap: needs PAP PP? OB - Problem Based A/P Additional Plan (1) Encounter for elective induction of labor: Status: Acute (2) Rh negative status during : Status: Acute (3) 40 weeks gestation of : Status: Acute Plan ASSESSMENT:? 29 yo at 40.0 weeks gestation? complicated by:?Rh negative, Placenta owen, failed 1 hour gtt but did 2 weeks of testing WNL Labor type: Induced, not in labor? Category 1 FHR pattern.?? Labor complicated by: none? GBS negative? ? PLAN:? 1. Routine intrapartum cares as ordered. Reviewed options of induction, was previously planned cytotec which is what was recommended this morning based on SVE. Patient agreeable with plan of vaginal cytotec per protocol every 3-4 hours. 2. Monitoring per policy, continuous with induction agents? 3. Planning unmedicated . Desires water . Consent signed. Hep C negative. Candidate for analgesia of choice.?? 4. Patient encouraged to reposition and ambulate to promote physiologic labor and .? 5. Anticipate ? Delivery/Labor/Induction Plan Plan: induction Induction method: Cervidil OB Result Labs Blood Type: A (-) negative GBS Status: negative OB Exam Physical Exam Vital signs: Temp Pulse Resp BP 98.0 F 78 16 129/76 03/03/25 08:05 03/03/25 08:03 03/03/25 08:05 03/03/25 08:03 Narrative: Vitals Reviewed Constitutional:? Alert and oriented x3 HEENT:? Normocephalic, atraumatic Neck:? Supple Lungs:? Clear to auscultation bilaterally Heart:? Regular rate and rhythm, no murmur, rub or gallop Abdomen:? Soft, nontender, and gravid. Vertex by Eyal's, confirmed with cervical exam. Extremities:? No edema or erythema Cervix: 1 cm/50%/-3 station/vertex NST: 145 bpm/moderate variability/15x15 accelerations/no de celerations/contractions occasionally Detailed Labor and Delivery Exam Patient Gravid: yes
[2025-03-03] MEDS: IBUPROFEN 600 MG TABLET PO ×2 (16:48→22:48)
--- NOTE | 2025-03-03 17:11 | W.PM.OBVAGDE ---
OB Procedure Vag Delivery Mother Details Mother Details: The patient is a 29 year-old, 4, now Para 3, admitted on 03/03/25 at 40 0/7 gestation. : 4 Para: 3 Weeks Gestation: 40.0 Admission Date: 03/03/25 Additional Details Amniotic Membrane Status: SROM Amniotic Membrane Rupture Date: 03/03/25 Amniotic Membrane Rupture Time: 15:29 Amniotic Membrane Fluid Description: Clear Analgesia/Anesthesia Type: None Waterbirth: Yes Pitcoin: No Intrapartal Events: Labor Induction and Precipitous Labor <3 Hrs Induction Method: per misoprostol protocol Labor Onset: 13:45 Complete: 15:29 Pushin:29 Heart: heart tones during second stage were reassuring via intermittent auscultation. Delivery Details Delivery Date: 03/03/25 Delivery Time: 15:53 Route of delivery: Gender: Male Infant Viability: Alive; Heart Rate Present Position at Delivery: OA Delivery Details: Patient was admitted for elective induction of labor and progressed precipitiously after her 2nd dose of cytotec. SROM noted at 1529 with clear fluid with onset of pushing. Patient was assumed complete with pushing at 1529. of a viable male at 1553, kneeling in the tub. Vertex delivered OA. Nuchal cord x1 reduced after delivery of the head. No shoulder. Body delivered easily and without incident. Infant passed between mothes legs and brought up to mothers abdomen. [place] was stimulated for a cry. Cord was clamped and cut at > 5 minutes. APGARS were [] at one minute and [] at five minutes respectively. Mouth was bulb suctioned. Intact placenta with a 3 vessel cord delivered spontaneously at 1611. Fundus firm. Intact perineum. QBL 120 cc + EBL 200 cc from tub for total of 320 cc. Mother and baby stable; mother plans to breastfeed. weight pending. Additional Details Shoulder Dystocia: No Placenta Delivery Time: 16:11 Placental Delivery Description: Spontaneous Delivery repair: Vicryl Procedure Done: Global Blood Loss: 320 Laceration: None Blood Loss Measurement Type: QBL Bakri Used: No Sponge/Need Count Correct: No Cord Vessel Description: 3 Vessels Event Summary Status: Mother and were stable after delivery. Disposition: floor
[2025-03-03] MEDS: ACETAMINOPHEN 500 MG TABLET 1000 MG PO (17:50)
[2025-03-04 00:43] VITALS: BP 110/71; PULSE 77; RESP 12; TEMP 36.9; O2SAT 96
[2025-03-04] MEDS: ACETAMINOPHEN 500 MG TABLET 1000 MG PO ×3 (01:37→13:15)
[2025-03-04 04:11] VITALS: BP 117/77; PULSE 74; RESP 16; TEMP 36.8; O2SAT 97
[2025-03-04] MEDS: IBUPROFEN 600 MG TABLET PO ×2 (04:28→10:32)
[2025-03-04] MEDS: DOCUSATE SODIUM 100 MG CAPSULE PO (08:16)
[2025-03-04 08:42] VITALS: BP 103/69; PULSE 74; RESP 16; TEMP 36.6; O2SAT 98
--- NOTE | 2025-03-04 09:00 | P.DS_ITS ---
DS: Providers Provider Date Seen: 03/04/25 Date of admission: 03/03/25 07:31 Primary care physician: Not a Local Provider Admitting Clinician: Irma Arce CNM Attending Physician on discharge: Irma Arce CNM Date of Discharge: 03/04/25 DS: Diagnosis Discharge Diagnosis (1) Lactating mother: Status: Acute (2) Rh negative status during : Status: Acute (3) care following vaginal delivery: Status: Acute Exam Narrative: Exam Narrative: GENERAL APPEARANCE:? normal?affect, alert, no distress? MOOD:? appropriate? CHEST:? clear?to auscultation and percussion? HEART:? regular?rate and rhythm? BREASTS: soft, nontender, no erythema, nipples intact? ABDOMEN:? soft, non-tender?the uterine?fundus is?U/2?and is?appropriate for?the stage of recovery.? PERINEUM:? mild?edema of the perineum, there is?a?intact perineum?that?is healing well.? EXTREMITIES:? normal?and no edema? Const: Vital Signs, click to edit/add: Vital Signs - 24 hr 03/03/25 11:34 03/03/25 11:37 03/03/25 15:15 Temperature 98.1 F Pulse Rate 63 81 Pulse Rate [Pulse Oximeter] Respiratory Rate 16 Blood Pressure 123/73 123/74 Blood Pressure [Le ft Arm] Pulse Oximetry 98 Oxygen Delivery Me thod 03/03/25 15:16 03/03/25 16:12 03/03/25 16:27 Temperature 98.2 F Pulse Rate 76 71 Pulse Rate [Pulse Oximeter] Respiratory Rate 16 Blood Pressure 129/75 124/73 Blood Pressure [Le ft Arm] Pulse Oximetry Oxygen Delivery Me thod 03/03/25 16:42 03/03/25 16:57 03/03/25 17:12 Temperature Pulse Rate 70 72 68 Pulse Rate [Pulse Oximeter] Respiratory Rate Blood Pressure 118/67 118/63 122/71 Blood Pressure [Le ft Arm] Pulse Oximetry Oxygen Delivery Me thod 03/03/25 17:27 03/03/25 17:27 03/03/25 17:42 Temperature Pulse Rate 75 Pulse Rate [Pulse Oximeter] Respiratory Rate Blood Pressure 114/72 105/66 Blood Pressure [Le ft Arm] Pulse Oximetry Oxygen Delivery Me thod 03/03/25 17:42 03/03/25 17:57 03/03/25 17:57 Temperature Pulse Rate 74 77 Pulse Rate [Pulse Oximeter] Respiratory Rate Blood Pressure 106/66 Blood Pressure [Le ft Arm] Pulse Oximetry Oxygen Delivery Me thod 03/03/25 18:12 03/03/25 18:12 03/03/25 20:25 Temperature 98.6 F Pulse Rate 96 Pulse Rate [Pulse Oximeter] 82 Respiratory Rate 12 Blood Pressure 111/71 Blood Pressure [Le ft Arm] 119/82 Pulse Oximetry 96 Oxygen Delivery Me thod Room Air 03/04/25 00:43 03/04/25 04:11 03/04/25 08:42 Temperature 98.5 F 98.2 F 97.8 F Pulse Rate Pulse Rate [Pulse Oximeter] 77 74 74 Respiratory Rate 12 16 16 Blood Pressure Blood Pressure [Le ft Arm] 110/71 117/77 103/69 Pulse Oximetry 96 97 98 Oxygen Delivery Me thod Room Air Room Air Room Air OB - DS: Summary Hospital Course Hospital Course: Isabel is a 29 year old G 4 P 3 at 40.0 weeks gestation that was admitted to the Center on 03/03/25 for elective IOL. She had an uncomplicated vaginal delivery. She delivered a viable male . She is breast feeding and feels it is going good expect baby cluster fed overnight. the patient has done well. Her?pain is well controlled with current medications.?She is having moderate to intense cramping with nursing but feels it is starting to imp rove.?She has no new complaints.??Urinary output is?adequate?and she is voiding without difficulty.??Has?a good appetite, is tolerating a general diet, is passing flatus, and has?not?had a bowel movement.??Has?scant?amount?of rubra lochia.??She?is?ambulating?well. She is planning NFP and has successfully used this in the past. Discussed that if she wanted a more effective form in the future we would be happy to discuss options. She declines any medication prescriptions for discharge as she has what she needs already. Baby is confirmed A- blood type so Rhogam is not currently indicated. Peripartum Data delivery method: Vaginal Laceration description: None Episiotomy description: None complications: none Gender: Male Discharge Plan: Home Status at Discharge Functional status at discharge: independent ambulation Overall status at discharge: patient is progressing back to baseline Time Spent with Patient Time attestation: Total time spent providing and/or coordinating discharge services: Discharge Plan Discharge Disposition: Home, Self-Care Date of Admission: 03/03/25 07:31 Attending Provider on Discharge: Almaz Manzano Primary Care Provider: Provider,Not a Local Condition: Stable Anticipated Discharge Date/Time: 03/04/25 17:00 Discharge Medications: Continued One-A-Day -1 27 mg iron- 800 mcg-235 mg capsule 1 cap PO QDAY Discontinued (DME) lancets Misc See Rx Instructions .MEDSUPPLY Qty: 200 3RF Rx Instructions: Test blood sugar 4 times daily. (DME) Test Strips Misc See Rx Instructions .MEDSUPPLY Qty: 200 3RF Rx Instructions: Test blood sugar 4 times daily. Discharge Orders: Discharge Order (Routine); Ordered 03/04/25 Ordered By: Almaz Manzano Patient Education: OB Vaginal/Breast Feeding Additional Instructions: Discharge instructions were reviewed with the patient including signs and symptoms of infection and home going medications Nothing vaginally for 6 weeks: no tampons or intercourse Do not drive while taking narcotic pain medication(s) Off Work or School for 8 weeks Symptoms to report to doctor: * Bleeding that saturates more than one pad per hour * Passing clots larger than the size of a golf ball * Pain not relieved by prescribed medication * Fever above 100.4 degrees Fahrenheit * A foul vaginal odor * Difficulty in emotions, mood, and functions * Thoughts of hurting yourself and/or * Painful, reddened area in your breast * Any drainage, redness, or tenderness in your IV/epidural site * Severe headache that doesn't improve after taking medications * Changes in vision, including temporary loss of vision, blurred vision, and/or light sensitivity * Upper abdominal pain (usually under ribs on the right side) * Decrease in urination or painful, frequent urinating * Chest pain * Shortness of breath * Tenderness or pain with redness and/swelling in the calf(s) of your leg 2-week visit: discuss infant feeding concerns, review control options and screen for anxiety/depression. 6-week visit for an annual exam. consultation services are available to all mothers and babies for the first year after delivery.? To make an appointment, please call [phone]. Activity Level: Activity as Tolerated Discharge Diet: Regular Follow Up Appointments: [facility] [Provider Group] Provider,Not a Local [Primary Care Provider, Family Practice] Forms: [facility] Info Instructions
[2025-03-04 13:00] VITALS: BP 120/74; PULSE 87; RESP 18; TEMP 36.5; O2SAT 98
--- NOTE | 2025-03-04 13:43 | CRLHL7_ITS ---
For Patients: As a result of the Century Cures Act, medical imaging exams and procedure reports are released immediately into your electronic medical record. You may view this report before your referring provider. If you have questions, please contact your health care provider. INDICATION: Passing a large amount of tissue from the vagina. Vaginal delivery on March 03, 2025. COMPARISON: 10/14/2024 pelvic ultrasound TECHNIQUE: Sonographic evaluation of the pelvis was performed utilizing green-scale and color Doppler imaging techniques. Transabdominal images were obtained. FINDINGS: The uterus measures 16.5 x 9.8 x 11.1 centimeters. Heterogeneous endometrial stripe measuring 1.5 centimeters in thickness. No appreciable vascular flow detected at the endometrial stripe. The ovaries are not visualized, probably obscured by bowel gas. No free fluid is detected in the pelvis. IMPRESSION: 1. Heterogeneous endometrial stripe measuring 1.5 centimeters in thickness without appreciable vascular flow. Findings could represent blood products and/or retained products of conception. 2. The ovaries are not visualized, probably obscured by bowel gas. Dictated by Brendan Bright MD @ 03/04/2025 2:43:35 PM (Electronically Signed)
== END 2025-03-04 17:35 | disposition home or self-care (01) | DRG 560 ==
PROVIDERS: Advanced Practice Midwife; Admitting Provider Advanced Practice Midwife; Visit Provider Advanced Practice Midwife
DX: O26.893 Other specified pregnancy related conditions, third trimester (principal); Z67.11 Type A blood, Rh negative; O62.3 Precipitate labor; Z3A.40 40 weeks gestation of pregnancy; Z37.0 Single live birth
CPT/HCPCS: 59200; 76856; 86780; A9270